=== PATIENT | male | born 1960 | race African-American/Black ===

== ENCOUNTER 2018-12-30 17:05 | Emergency (ER) | payer BC, OTHER ==
[~2018-12-30] VITALS: Ht 165.1 cm; Wt 79.4 kg
[~2018-12-30 17:05] MED LIST: ALFU10TA PO; CODE1CAP21 PO; HYDR1TAB4 PO; ROSU10TA2 PO
[2018-12-30 17:25] VITALS: BP 156/99
[2018-12-30 17:59] LABS: APPEARANCE,URINE Clear (CLEAR); BILIRUBIN,URINE Negative (NEGATIVE); BLOOD, URINE Trace-intact Ery/uL (NEGATIVE); COLOR,URINE Yellow (YELLOW); KETONES,URINE Negative (NEGATIVE); LEUKOCYTE ESTERASE ,URINE Negative (NEGATIVE); NITRITE, URINE Negative (NEGATIVE); PROTEIN,URINE Negative (NEGATIVE); UGLUCOSE Negative (NEGATIVE); UROBILINOGEN,URINE 0.2 EU/dL (0.2)
[2018-12-30 18:48] LABS: SQUAMOUS EPITHELIAL CELL,UR Few /HPF (None Seen); WBC,URINE 0-2 /HPF (0-3)
[2018-12-30 18:49] LABS: BACTERIA,URINE Few /HPF (None Seen)
== END 2018-12-30 19:23 | disposition home or self-care (01) ==
LOC: ER 17:15
DX: N41.9 Inflammatory disease of prostate, unspecified (principal); E78.00 Pure hypercholesterolemia, unspecified; Z98.890 Other specified postprocedural states; Z85.46 Personal history of malignant neoplasm of prostate; Z87.440 Personal history of urinary (tract) infections; Z79.899 Other long term (current) drug therapy
CPT/HCPCS: 76856-TC; 81000-TC